=== PATIENT | female | born 1955 | race Caucasian/White ===

== ENCOUNTER 2017-06-21 09:59 | Outpatient (CLI) | payer BC ==
[~2017-06-21] VITALS: Ht 177.8 cm; Wt 62.6 kg
[2017-06-21] MEDS ORDERED: FLUT9.9S NS (10:15)
[2017-06-21] MEDS ORDERED: CALC-822 PO (10:15)
[2017-06-21 10:18] VITALS: BP 134/86
== END 2017-06-21 10:22 | disposition home or self-care (01) ==
LOC: PREOP 09:59
PROVIDERS: ATTEND Podiatrist Foot & Ankle Surgery
DX: Z01.818 Encounter for other preprocedural examination (principal); M20.11 Hallux valgus (acquired), right foot; M20.41 Other hammer toe(s) (acquired), right foot; M89.371 Hypertrophy of bone, right ankle and foot
CPT/HCPCS: 87081

== ENCOUNTER → 2023-07-06 | Outpatient (CLI) | payer MEDICARE ==
[~2023-07-06] VITALS: Ht 177.8 cm; Wt 63.6 kg
[~2023-07-06] MED LIST: ACHD5005 PO; CALC-822 PO; CEPH500C PO; FLUT9.9S NS
== END | disposition home or self-care (01) ==
LOC: PREOP 05:39
PROVIDERS: ATTEND Podiatrist Foot & Ankle Surgery
DX: Z01.818 Encounter for other preprocedural examination (principal)

== ENCOUNTER 2023-07-10 07:48 | Day surgery (SDC) | payer BC, MEDICARE ==
[~2023-07-10] VITALS: Ht 177.8 cm; Wt 63.6 kg
[2023-07-10] VITALS (11 sets, daily range): BP systolic 124–150; BP diastolic 86–105
[2023-07-10] MEDS ORDERED: ceFAZolin INJECTION 2,000 MG in NS (IVPB) 50 ML 50 ML IV ONE (08:15)
[2023-07-10] MEDS ORDERED: LACTATED RINGERS 1,000 ML 1,000 ML IV PRN (09:00)
[2023-07-10] MEDS ORDERED: dexAMETHasone INJ 10 MG/ML 1 ML VIAL ONE ×2 (09:56→12:20)
[2023-07-10] MEDS ORDERED: LIDOCAINE 1% INJ 20 ML VIAL ONE (09:56)
[2023-07-10] MEDS ORDERED: BUPIVACAINE 0.5% 30 ML VIAL ONE (09:56)
--- NOTE | 2023-07-10 10:04 | Progress Note-Pre Operative ---
Pre-Operative Progress Note Date of Available H&P: Jul 10, 2023 Date H&P Reviewed: Jul 10, 2023 Time H&P Reviewed: 10:03 Pre-Operative Diagnosis: Failed hardware, hallux valgus, right SAIGE EVANGELISTA DPM Jul 10, 2023 10:04
[2023-07-10] MEDS ORDERED: FAMOTIDINE INJ 20MG/2ML VIAL ONE (10:37)
[2023-07-10] MEDS ORDERED: SCOPOLAMINE 1.5 MG PATCH ONE (10:38)
[2023-07-10] MEDS ORDERED: ONDANSETRON INJECTION 4 MG/2 ML (SDV) ONE ×2 (10:38→12:20)
[2023-07-10] MEDS ORDERED: LIDOCAINE PF 2% 5 ML VIAL ONE (10:43)
[2023-07-10] MEDS ORDERED: proPOfol INJECTION 200 MG/20 ML VIAL IV ONE (10:43)
[2023-07-10] MEDS ORDERED: fentaNYL INJECTION 100 MCG/2 ML VIAL ONE (10:43)
[2023-07-10] MEDS ORDERED: SCOPOLAMINE 1.5 MG PATCH TOP ONE (10:45)
[2023-07-10] MEDS ORDERED: ONDANSETRON INJECTION 4 MG/2 ML (SDV) IV ONE (10:45)
[2023-07-10] MEDS ORDERED: FAMOTIDINE INJ 20MG/2ML VIAL IV ONE (10:45)
[2023-07-10] MEDS ORDERED: KETOROLAC INJ 30 MG/ML VIAL ONE (12:56)
--- NOTE | 2023-07-10 12:59 | Progress Note-Post Operative ---
Post-Operative Progess Note Surgeon (s)/Business Advisor (s) Surgeon SAIGE EVANGELISTA DPM Business Advisor: none Pre-Operative Diagnosis Failed hardware, hallux valgus, right Post-Operative Diagnosis Same Procedure & Operative Findings Date of Procedure 07/10/23 Procedure Performed/Findings Luca bunionectomy, right Removal of Hardware, right foot Anesthesia Type General Estimated Blood Loss Estimated blood loss (mL): minimal Specimens/Packing Specimens Removed none besides the hardware SAIGE EVANGELISTA DPM Jul 10, 2023 12:58
[2023-07-10] MEDS ORDERED: HYDROcodone/ACETAMINOPHEN 5 MG/325 MG TABLET PO PRN (13:00)
[2023-07-10] MEDS ORDERED: LACTATED RINGERS 1,000 ML 1,000 ML IV SCH (13:00)
--- NOTE | 2023-07-10 13:02 | Anesthesia-General Post-Op ---
General Patient Condition Mental Status/LOC: Same as Preop Cardiovascular: Satisfactory Nausea/Vomiting: Absent Respiratory: Satisfactory Pain: Controlled Complications: Absent Post Op Complications Complications None Follow Up Care/Instructions Patient Instructions None needed. Anesthesia/Patient Condition Patient Condition Patient is doing well, no complaints, stable vital signs, no apparent adverse anesthesia problems. No complications reported per nursing. TUSHAR ALEJANDRE CRNA Jul 10, 2023 13:02
[2023-07-10] MEDS ORDERED: CEPH500C PO (13:13)
[2023-07-10] MEDS ORDERED: ACHD5005 PO (13:13)
[2023-07-10] MEDS ORDERED: ONDANSETRON INJECTION 4 MG/2 ML (SDV) IVP PRN (13:15)
[2023-07-10] MEDS ORDERED: PROMETHAZINE INJ 25 MG/ML VIAL IVP ONE (13:15)
[2023-07-10] MEDS ORDERED: fentaNYL INJECTION 100 MCG/2 ML VIAL IVP ONE (13:15)
--- NOTE | 2023-07-10 18:32 | Diagnostic Imaging Report ---
INDICATION: Postop foot. COMPARISON: 06/30/2017. FINDINGS: Two radiographic views of the right foot were obtained. Soft tissue emphysema is noted. Orthopedic side plate and screws have since been removed from the medial cuneiform and proximal margins of the first metatarsal. Orthopedic screw is again identified within the head of the second metatarsal. Metallic cerclage wires are also noted projecting over the first proximal phalanx. New metallic pin osteotomy defect is noted involving the distal margins of the first metatarsal. Joint spaces are appropriate. No acute fracture is identified. IMPRESSION: 1. Postoperative changes to the right foot as above. No unexpected radiopaque foreign bodies. Dictated by: Dictated on workstation # [id number]
--- NOTE | 2023-07-10 23:05 | OPERATIVE REPORT ---
DATE OF SERVICE: 07/10/2023 SURGEON: Rhoda Arellano DPM. PREOPERATIVE DIAGNOSES: 1. Hallux abducto valgus, right. 2. Failed hardware, right. PROCEDURE: 1. Luca bunionectomy, right foot. 2. Removal of hardware, right foot. WOUND CLASS: Clean. ANESTHESIA: General. HEMOSTASIS: Pneumatic thigh tourniquet at 250 mmHg. INDICATIONS: This 67-year-old female, who presents complaining of painful right foot. Conservative therapy is met with unsatisfactory results and the patient is agreeable to surgical intervention after risks and complications were discussed at length. No guarantees were extended to the patient and she is willing proceed. DESCRIPTION OF PROCEDURE: The patient was brought back to the operating table and placed in secure supine position. A general anesthetic was then induced. Appropriate timeout was performed. Pneumatic thigh tourniquet was placed on the right lower extremity over several layers of padding. The right foot was then anesthetized locally with 10 mL of 1:1 mixture of 1% Xylocaine and 0.5% Marcaine injected in a Quintanilla block. The right foot was then prepped and draped in normal sterile manner. The right foot was then elevated and allowed to exsanguinate after which the tourniquet was inflated to 250 mmHg. Attention was then directed to the dorsal aspect of the right first metatarsal cuneiform joint where a 4 cm longitudinal linear incision was created. The incision was deepened in the same plane with great care to identify and retract all vital neurovascular structures. The incision was deepened down medial to the extensor hallucis longus tendon where a longitudinal deep incision was created overlying the plate and screws of the arthrodesis of the first metatarsal cuneiform joint. This [place] 28 plate and screw system was removed including the interfragment screw between the base of the first metatarsal and the medial cuneiform. In order to do this, there was a secondary incision of approximately 0.5 cm to the medial aspect of the base of the first metatarsal. The wound was flushed with copious amounts of normal saline. Closure was performed in layers. Deep closure was performed with 3-0 Vicryl, superficial with 4-0 Vicryl and skin closure with 4-0 V-Loc subcuticular type stitch. Attention was then directed to the right first metatarsophalangeal joint where there is limited range of motion and a significant dorsal eminence to the first metatarsal head as well as lateral deviation of the hallux. A 4 cm longitudinal linear incision was created. The incision was deepened in the same plane with great care to identify and retract all vital neurovascular structures, when necessary blood vessels were cauterized as encountered. The incision was deepened down to the first metatarsophalangeal joint where a longitudinal capsulotomy was performed. The capsular tissue was reflected medial and laterally exposing the hypertrophic dorsal eminence to the first metatarsal head, which was resected utilizing a power sagittal saw. The medial eminence of the first metatarsal head was also resected with a power sagittal saw. Inspection of the first metatarsal noted a complete destruction of the articular cartilage at the most dorsal aspect of the first metatarsal head. There were also significant adhesions to the inferior aspect of the first metatarsal head with the medial and lateral sesamoid area. These adhesions were disrupted and debrided as well as could be accomplished at this time. Improved range of motion was now appreciated at the right first metatarsophalangeal joint. Next, utilizing a power sagittal saw, a Chevron type osteotomy was performed from medial to lateral, allowing the capital fragment to translocate laterally and was fixated in its corrected position utilizing a 0.062 threaded K-wire driven from dorsal proximal to plantar distal across the osteotomy with great care not to penetrate the remaining articular cartilage. The K-wire was cut flush with the dorsal aspect of the first metatarsal. The head of the first metatarsal was further contoured and smoothed with a power bur. Excellent range of motion was appreciated at the first metatarsophalangeal joint at this point, with approximately 40 degrees of dorsiflexion. The base of the proximal phalanx was also addressed with a rongeur and smoothed with a power bur. The wounds were flushed with copious amounts of normal saline and closure was then performed in layers. Deep closure was performed with 3-0 Vicryl, superficial with 4-0 Vicryl, skin closure with V-Loc in a subcuticular type stitch. It should also be noted that the ancillary incision was closed with 4-0 Prolene in a simple interrupted type stitch. Postoperative injection consisted of 13 mL of 0.5% Marcaine injected in a local infusion to the surgical sites followed by a dexamethasone 10 mg in and around the first metatarsophalangeal joint. Postoperative dressing consisted of Betadine-soaked Adaptic, sterile 4 x 4s, sterile Kerlix all secured with a Coban wrap. The patient tolerated the anesthesia and procedure well and was transported from the operating room to the recovery room with vital signs stable and vascular status intact to all digits of the right foot. She is to be nonweightbearing on the right lower extremity and leave the dressing dry, clean, and intact. We will see her back in 10 days in the office or sooner if necessary. Job ID: [id number] DocumentID: [id number] Dictated Date: 07/10/2023 13:11:49 Body Piercer Date: 07/10/2023 23:03:00 Dictated By: CARLYN GOMEZ
== END 2023-07-10 15:30 | disposition home or self-care (01) ==
LOC: SDC 07:48
PROVIDERS: ATTEND Podiatrist Foot & Ankle Surgery
DX: T84.098A Other mechanical complication of other internal joint prosthesis, initial encounter (principal); M20.11 Hallux valgus (acquired), right foot; M79.671 Pain in right foot; Z85.3 Personal history of malignant neoplasm of breast
CPT/HCPCS: 73620; 87081